=== PATIENT | male | born 1980 | race Two or more races ===

== ENCOUNTER 2021-12-07 21:03 | Emergency (ER) | payer MEDICAID, OTHER ==
[~2021-12-07] VITALS: Ht 165.1 cm; Wt 95.0 kg
[2021-12-07 21:03] VITALS: BP 160/84
[2021-12-07 22:25] LABS: Basophils # (auto) 0.1 10 ^3/uL (0-0.2); Basophils % (auto) 0.6 % (0.0-2.0); Eosinophils # (auto) 0.3 10 ^3/uL (0-0.8); Eosinophils % (auto) 2.8 % (0.0-7.0); Hematocrit 45.5 % (41.0-53.0); Lymphocytes # (auto) 3.1 10 ^3/uL (0.4-5.4); Lymphocytes % (auto) 30.5 % (10.0-50.0); Mean Corpuscular Hemoglobin 29.4 pg (28.0-32.0); Mean Corpuscular Volume 89.2 fL (80.0-100.0); Monocytes # (auto) 0.6 10 ^3/uL (0-1.3); Monocytes % (auto) 6.1 % (0.0-12.0); Red Cell Distribution Width 13.5 % (11.8-14.3)
[2021-12-07 22:41] LABS: Albumin 3.8 g/dL (3.4-5.0); Calcium 8.7 mg/dL (8.5-10.1); Potassium 4.3 mmol/L (3.5-5.1)
[2021-12-07 22:45] LABS: BUN/Creatinine Ratio 10.2; Bilirubin, Total 0.8 mg/dL (0.2-1.0); Total Protein 7.5 g/dL (6.4-8.2)
[2021-12-07 22:47] LABS: INR 0.94 (0.9-1.15); Partial Thromboplastin Time 28.8 sec (24.6-33.4)
[2021-12-08] MEDS ORDERED: CIPR-173 PO (04:26)
[2021-12-08] MEDS ORDERED: FAMO20TA10 PO (04:26)
== END 2021-12-08 06:25 | disposition left against medical advice (07) ==
LOC: ER 21:03
DX: R07.89 Other chest pain (principal); E11.9 Type 2 diabetes mellitus without complications; Z79.2 Long term (current) use of antibiotics; Z79.899 Other long term (current) drug therapy
CPT/HCPCS: 36415; 71045; 80053; 83690; 83880; 84484; 85025; 85379; 85610; 85730; 93005